=== PATIENT | female | born 1965 | race Caucasian/White ===

== ENCOUNTER 2023-03-05 15:25 | Emergency (ER) | payer OTHER, SELFPAY ==
[2023-03-05 15:29] VITALS: BP 142/77; PULSE 104; RESP 20; TEMP 36.7; O2SAT 96; BMI 36.5
--- NOTE | 2023-03-05 15:29 | ED_ITS ---
HPI - General Adult General Chief complaint: General Medical Stated complaint: abdominal pain Time Seen by Provider: 03/05/23 19:19 Source: patient Mode of arrival: ambulatory Limitations: no limitations History of Present Illness HPI narrative: 58-year-old female with history of acute intermittent periphery a presenting with abdominal pain and left-sided paresthesias. Symptoms started yesterday. She describes her pain as moderate to severe. They are constant but come in waves of exacerbating severe discomfort. Pain is predominantly in the left lower abdominal quadrant. Pain does not radiate. It is associated with nausea but no vomiting. She denies diarrhea or constipation. She has had no fevers or chills. Again she describes left-sided paresthesias. Is unclear will what makes this worse or better. She also describes some subjective weakness. Her presentation is similar to previous occurrences. Her most recent hospitalization was at October of 2021 at [facility] where Dr. Valdes att ends to her. Typically patient is treated with Dilaudid, dextrose and nausea medication. She has had reactions to him a 10 which includes fever and therefore has been avoided in the past. Typically she is admitted for 2-3 days. Related Data Allergies Allergy/AdvReac Type Severity Reaction Status Date / Time No Known Allergies Allergy Verified 03/05/23 15:34 Review of Systems Review of Systems: CONSTITUTIONAL: Denies weight loss, fever and chills. HEENT: Denies changes in vision and hearing. RESPIRATORY: Denies SOB and cough. CV: Denies palpitations no CP. GI: + abdominal pain, nausea, - vomiting and diarrhea. : Denies dysuria and urinary frequency. MSK: Denies myalgia and joint pain. SKIN: Denies rash and pruritus. NEUROLOGICAL: Denies headache and syncope. PSYCHIATRIC: Denies recent changes in mood. Denies anxiety and depression. All other ROS are negative unless in HPI PMF Social History Social History Alcohol intake: never Smoked in Last 30 Days: No Use of substances other than those prescribed or required for medical reasons: No Advance Directives: No Advance Directives Information Provided: No Patient : No Physical Exam ED Vital Signs: Vital Signs - 24 hr 03/05/23 15:29 03/05/23 20:23 03/05/23 23:37 Temperature 98.1 F 98.7 F Pulse Rate 104 H 93 88 Respiratory Rate 20 18 17 Blood Pressure 142/77 H 124/77 127/61 Pulse Oximetry 96 95 94 Oxygen Delivery Method Room Air Room Air BMI result Body Mass Index 36.5 GEN: Well developed, no acute distress, alert, oriented HEENT: Normocephalic, atraumatic, normal external ears, nose appears normal, no oropharyngeal edema or exudates Eyes: Normal to appearance Neck: Supple, no lymphadenopathy Respiratory: Talks in complete sentences, no respiratory distress, clear to auscultation bilaterally Cardiovascular: Regular rate and rhythm, no murmurs rubs or gallops Abdomen: Soft, nontender, nondistended, no guarding, no rebound Back: No CVA tenderness Extremities: No clubbing cyanosis or edema Neurologic: No focal neurologic deficits, cranial nerves 2-12 intact, strength is 5/5 bilaterally Skin: No rash Course Course Course Narrative: This is a rapid medical exam: Additional HPI, ROS, PE not included below will be deferred to primary provider. Patient is a 58-year-old female presenting to the emergency department with history of acute porphyria complaining of suprapubic abdominal pain since yesterday afternoon around 15:30. Also reports weakness and tingling to LUE and LLE since the same time. Denies back or flank pain. Denies any urinary symptoms. Denies nausea, vomiting, diarrhea or constipation. Reports subjective fevers for 2-3 days. Plan: urine, labs Reevaluation(s) Reevaluation #1: I reviewed outside records from 2020 from [facility]. She was admitted to the hospital and diagnosed with porphyria. However, her 24 hour hour urine collection did not show any evidence of this diagnosis. Time: 00:57 Reevaluation #2: I discussed my findings with the patient. She somehow did not seem surprised that the tests were negative from 2020 at [facility]. Although I cannot prove this, I suspect there might be a component of drug-seeking behavior. Her studies are still pending and are sent to an outside laboratory. Should she return to the hospital, would certainly recommend evaluation of these findings to support or refute a diagnosis of porphyria. Time: 01:12 Medications Administered Generic Name Dose Route Start Last Admin Trade Name Freq PRN Reason Stop Dose Admin Hydromorphone HCl 1 mg 03/05/23 23:05 03/06/23 00:49 Hydromorphone Hcl 1 Mg/Ml Syringe IVPUSH 1 mg Q2H PRN Administration Pain, Severe (Pain Scale 7-10) Protocol Dextrose/Sodium Chloride 1,000 mls @ 200 mls/hr 03/05/23 22:15 03/05/23 22:28 D5ns IVCONT 200 mls/hr .Q5H BREANNA Administration Discontinued Medications Generic Name Dose Route Start Last Admin Trade Name Oliver PRN Reason Stop Dose Admin Hydromorphone HCl 0.5 mg 03/05/23 22:13 03/05/23 22:28 Hydromorphone Hcl 0.5 Mg/0.5 Ml Syringe IVPUSH 03/05/23 22:14 0.5 mg ONCE ONE Administration Protocol Ondansetron HCl 4 mg 03/05/23 22:13 03/05/23 22:28 Ondansetron Hcl 4 Mg/2 Ml Vial IVPUSH 03/05/23 22:14 4 mg ONCE ONE Administration Medical Decision Making Medical Decision Making [facility] Narrative: 58-year-old female with acute intermittent periphery a. She presents with abdominal pain, seizures. Examination is benign. Patient localizes the abdominal pain to left lower quadrant however there is no tenderness, rebound or guarding. As far as her abdominal pain is considered, would consider diverticulitis however, patient reports having had so many CT scans that have been negative for said condition. Differential diagnosis includes abdominal pain, gastroenteritis, porphyria, IBD co IBS, neuropathy. Will check routine lab testing. I doubt her testing will return to assist with a diagnosis. PAtient reports responding to D5, Dilaudid, Zofran. She usually requires 2-3 days admissions Differential Diagnosis Differential Diagnoses: The differential diagnosis associated with the presentation includes (see above) Consult Healthcare Provider Management of the patient was discussed with: Hospitalist Lab Data [facility] Lab Attestation statement: I reviewed the patient's lab results. 03/05/23 18:14 03/05/23 18:14 Labs: Lab Results 03/05/23 03/05/23 03/05/23 Range/Units 18:14 18:14 18:14 WBC 11.5 H (4.8-10.8) X10*3/uL RBC 5.13 (4.20-5.50) X10*6/uL Hgb 13.8 (12.0-16.0) g/dl Hct 43.8 (37.0-47.0) % MCV 85.4 (80.0-98.0) fL MCH 26.9 L (27.0-33.0) pg MCHC 31.5 (31.0-35.0) g/dl RDW 14.2 (11.0-16.0) % Plt Count 313 (160-400) X10*3/uL MPV 9.1 L (9.4-12.3) fL Immature Gran % (Auto) 0.8 H (0.0-0.4) % Neut % (Auto) 74.5 H (45-73) % Lymph % (Auto) 15.7 L (20-40) % [place] % (Auto) 6.7 (2-11) % Eos % (Auto) 1.7 (0-4) % Baso % (Auto) 0.6 (0-2) % Lymph # (Auto) 1.8 (1.2-4.9) X10*3/uL [place] # (Auto) 0.8 (0.1-1.2) X10*3/uL Eos # (Auto) 0.2 (0.0-0.4) X10*3/uL Baso # (Auto) 0.1 (0.0-0.2) X10*3/uL Abs Immat Gran (auto) 0.09 H (0.00-0.03) X10*3/uL Absolute Neuts (auto) 8.6 H (2.0-8.3) x10*3/uL Absolute Nucleated RBC 0.000 (0.0-0.012) X10*3/uL Nucleated RBC % (auto) 0.0 (0.0-0.2) /100WBC PT 11.3 (11.1-13.3) SEC INR 0.9 (0.9-1.1) Sodium 142 (135-145) mmol/L Potassium 4.4 (3.3-5.1) mmol/L Chloride 109 H (96-108) mmol/L Carbon Dioxide 24 (22-29) mmol/L Anion Gap 13 (12-20) BUN 15 (9-16) mg/dL Creatinine 0.80 (0.5-1.4) mg/dL Estim Creat Clear Calc 93.6 Estimated GFR > 60 Random Glucose 114 (60-115) mg/dL Calcium 9.7 (8.4-10.2) mg/dL Total Bilirubin 0.2 (0.0-1.0) mg/dL AST 17 (5-31) U/L ALT 17 (0-31) U/L Alkaline Phosphatase 126 H (39-117) U/L Total Protein 7.9 (6.5-8.0) g/dL Albumin 4.1 (3.5-5.0) g/dL Lipase 50 (8-78) U/L Urine Color Urine Appearance Urine pH (5.0-9.0) Ur Specific [place] (1.005-1.025) Urine Protein (Neg-Trace) mg/dL Urine Glucose (UA) (Negative) mg/dL Urine Ketones (Negative) mg/dL Urine Blood (Negative) Urine Nitrite (Negative) Ur Leukocyte Esterase (Negative) 03/05/23 Range/Units 18:14 WBC (4.8-10.8) X10*3/uL RBC (4.20-5.50) X10*6/uL Hgb (12.0-16.0) g/dl Hct (37.0-47.0) % MCV (80.0-98.0) fL MCH (27.0-33.0) pg MCHC (31.0-35.0) g/dl RDW (11.0-16.0) % Plt Count (160-400) X10*3/uL MPV (9.4-12.3) fL Immature Gran % (Auto) (0.0-0.4) % Neut % (Auto) (45-73) % Lymph % (Auto) (20-40) % [place] % (Auto) (2-11) % Eos % (Auto) (0-4) % Baso % (Auto) (0-2) % Lymph # (Auto) (1.2-4.9) X10*3/uL [place] # (Auto) (0.1-1.2) X10*3/uL Eos # (Auto) (0.0-0.4) X10*3/uL Baso # (Auto) (0.0-0.2) X10*3/uL Abs Immat Gran (auto) (0.00-0.03) X10*3/uL Absolute Neuts (auto) (2.0-8.3) x10*3/uL Absolute Nucleated RBC (0.0-0.012) X10*3/uL Nucleated RBC % (auto) (0.0-0.2) /100WBC PT (11.1-13.3) SEC INR (0.9-1.1) Sodium (135-145) mmol/L Potassium (3.3-5.1) mmol/L Chloride (96-108) mmol/L Carbon Dioxide (22-29) mmol/L Anion Gap (12-20) BUN (9-16) mg/dL Creatinine (0.5-1.4) mg/dL Estim Creat Clear Calc Estimated GFR Random Glucose (60-115) mg/dL Calcium (8.4-10.2) mg/dL Total Bilirubin (0.0-1.0) mg/dL AST (5-31) U/L ALT (0-31) U/L Alkaline Phosphatase (39-117) U/L Total Protein (6.5-8.0) g/dL Albumin (3.5-5.0) g/dL Lipase (8-78) U/L Urine Color Yellow Urine Appearance Clear Urine pH 5.5 (5.0-9.0) Ur Specific [place] 1.015 (1.005-1.025) Urine Protein Negative (Neg-Trace) mg/dL Urine Glucose (UA) Negative (Negative) mg/dL Urine Ketones Negative (Negative) mg/dL Urine Blood Negative (Negative) Urine Nitrite Negative (Negative) Ur Leukocyte Esterase Negative (Negative) External Record Review obtaining records fro [facility] 10/2021 Prescription Management I considered prescription management with: Pain Medication Discharge Plan Discharge Clinical Impression: Abdominal pain Patient Disposition: Home, Self-Care Instructions: Abdominal Pain (ED) Referrals: Hector Carreon MD [Physician] - 1 day
[2023-03-05 18:22] LABS: MANUAL DIFF FLAG NO
[2023-03-05 18:31] LABS: INTERNATIONAL NORM RATIO 0.9 (0.9-1.1); Prothrombin Time 11.3 SEC (11.1-13.3)
[2023-03-05 18:33] LABS: Appearance Urine Clear; Color Urine Yellow; Glucose Urine UA Negative (Negative); Leukocyte Esterase Urine Negative (Negative); Nitrite Urine Negative (Negative); PH 5.5 (5.0-9.0); Specific Gravity - Urine 1.015 (1.005-1.025); Urine Blood Negative (Negative); Urine Ketones Negative (Negative); Urine Protein Negative (Neg-Trace)
[2023-03-05 18:44] LABS: Alanine Aminotransferase 17 U/L (0-31); Albumin Level 4.1 g/dL (3.5-5.0); Alkaline Phosphatase 126 U/L (39-117); Anion Gap 13 (12-20); Aspartate Amino Transferase 17 U/L (5-31); Bilirubin Total 0.2 mg/dL (0.0-1.0); Blood Urea Nitrogen 15 mg/dL (9-16); Calcium 9.7 mg/dL (8.4-10.2); Carbon Dioxide 24 mmol/L (22-29); Chloride 109 mmol/L (96-108); Creatinine Clr Calc Pharmacy 93.6; Estimated Glomerular Filt Rate > 60; Glucose Random 114 mg/dL (60-115); Lipase 50 U/L (8-78); Potassium 4.4 mmol/L (3.3-5.1); Sodium 142 mmol/L (135-145); Total Protein 7.9 g/dL (6.5-8.0)
[2023-03-05 18:56] LABS: Basophils Absolute Auto 0.1 X10*3/uL (0.0-0.2); Basophils Percent Auto 0.6 % (0-2); Eosinophils Absolute Auto 0.2 X10*3/uL (0.0-0.4); Eosinophils Percent Auto 1.7 % (0-4); Hematocrit 43.8 % (37.0-47.0); Hemoglobin 13.8 g/dl (12.0-16.0); Imm Gran Abs Auto 0.09 X10*3/uL (0.00-0.03); Imm Gran Pct Auto 0.8 % (0.0-0.4); Lymphocytes Absolute Auto 1.8 X10*3/uL (1.2-4.9); Lymphocytes Percent Auto 15.7 % (20-40); Mean Corpuscular HGB Conc 31.5 g/dl (31.0-35.0); Mean Corpuscular Hemoglobin 26.9 pg (27.0-33.0); Mean Corpuscular Volume 85.4 fL (80.0-98.0); Mean Platelet Volume 9.1 fL (9.4-12.3); Monocytes Absolute Auto 0.8 X10*3/uL (0.1-1.2); Monocytes Percent Auto 6.7 % (2-11); Neutrophils Absolute Auto 8.6 x10*3/uL (2.0-8.3); Neutrophils Percent Auto 74.5 % (45-73); Platelet Count 313 X10*3/uL (160-400); Red Blood Count 5.13 X10*6/uL (4.20-5.50); Red Cell Distribution Width 14.2 % (11.0-16.0); White Blood Count 11.5 X10*3/uL (4.8-10.8)
[2023-03-05 20:23] VITALS: BP 124/77; PULSE 93; RESP 18; O2SAT 95
[2023-03-05] MEDS: Dextrose 5 % and 0.9 % NaCl 1,000 ML 200 ML IVCONT (22:28)
[2023-03-05] MEDS: HYDROmorphone HCl 0.5 MG/0.5 ML SYRINGE IVPUSH (22:28)
[2023-03-05] MEDS: ondansetron HCL 4 MG/2 ML VIAL IVPUSH (22:28)
[2023-03-05 23:37] VITALS: BP 127/61; PULSE 88; RESP 17; TEMP 37.1; O2SAT 94
[2023-03-06] MEDS: HYDROmorphone HCl 1 MG/ML SYRINGE IVPUSH (00:49)
== END 2023-03-06 01:35 | disposition home or self-care (01) ==
PROVIDERS: Registered Nurse Emergency; Emergency Provider Emergency Medicine
DX: R10.32 Left lower quadrant pain (principal); R11.2 Nausea with vomiting, unspecified; Z79.899 Other long term (current) drug therapy
CPT/HCPCS: 36415; 80053; 81003; 82135; 83690; 84106; 85025; 85610; 96374; 96375; 96376; 99284; J1170; J2405